=== PATIENT | female | born 1955 | race Caucasian/White ===

== ENCOUNTER 2020-09-13 03:42 | Emergency (ER) | payer OTHER ==
[~2020-09-13 03:42] MED LIST: ASPIR 8181 MG PO; COREG 3.125M3.125 MG PO; DILANTIN100 MG PO; IPRAT-ALBUT 0.5-3 ML INH; ISOSORBIDE MONO30 MG PO; LEVAQUIN750 MG PO; NISOLDIPINE25.5 MG PO; PLAVIX 75 MG TA75 MG PO; PROTONIX40 MG PO; ROBITUSSIN DM473 ML PO
[2020-09-13 04:18] LABS: HEMOGLOBIN 12.4 gm/dl (12.3-15.3); RED BLOOD COUNT 3.98 M/UL (4.00-5.10); WHITE BLOOD COUNT 7.2 K/UL (4.5-11.0)
[2020-09-13 04:49] LABS: BUN/CREATININE RATIO 15 (0-10)
[2020-09-13] MEDS ORDERED: CEFPODOXIME PR200 MG PO (07:39)
[2020-09-13] MEDS ORDERED: MIRALAX17 GM PO (07:39)
== END 2020-09-13 08:10 | disposition home or self-care (01) ==
LOC: ER1 03:42
PROVIDERS: Emergency Medicine
DX: N39.0 Urinary tract infection, site not specified (principal); K59.00 Constipation, unspecified; I71.4 Abdominal aortic aneurysm, without rupture; Z86.73 Personal history of transient ischemic attack (TIA), and cerebral infarction without residual deficits
CPT/HCPCS: 71045; 80053; 81001; 82550; 82553; 83605; 83690; 84484; 85025; 87040; 96374; 99284; J0696; Q9967

== ENCOUNTER → 2021-01-31 | Outpatient (CLI) | payer OTHER ==
[~2021-01-31] MED LIST changes: +CEFPODOXIME PR200 MG PO; +MIRALAX17 GM PO
== END ==
LOC: EXRD 12:46
DX: M79.642 Pain in left hand (principal); I70.8 Atherosclerosis of other arteries
CPT/HCPCS: 93931

== ENCOUNTER 2021-03-21 17:27 | Inpatient (IN) | payer OTHER ==
[~2021-03-21] VITALS: Ht 154.9 cm; Wt 41.4 kg
[2021-03-21 18:35] LABS: HEMOGLOBIN 12.6 gm/dl (12.3-15.3); RED BLOOD COUNT 4.16 M/UL (4.00-5.10); WHITE BLOOD COUNT 17.7 K/UL (4.5-11.0)
[2021-03-22] MEDS ORDERED: ADULT LOW DOSE81 MG PO (03:05)
[2021-03-22] MEDS ORDERED: CLOPIDOGREL75 MG PO (03:05)
[2021-03-22 10:15] LABS: HEMOGLOBIN 11.8 gm/dl (12.3-15.3); RED BLOOD COUNT 3.85 M/UL (4.00-5.10); WHITE BLOOD COUNT 19.6 K/UL (4.5-11.0)
[2021-03-24 08:28] LABS: HEMOGLOBIN 9.9 gm/dl (12.3-15.3)
[2021-03-24 08:29] LABS: RED BLOOD COUNT 3.27 M/UL (4.00-5.10); WHITE BLOOD COUNT 6.6 K/UL (4.5-11.0)
--- NOTE | 2021-03-24 21:08 | NUR ---
CALLED CRITICAL CALCIUM LEVEL TO MD. RECIEVED ORDERS. WILL CONTINUE TO MONITOR.
--- NOTE | 2021-03-26 04:37 | NUR ---
PT'S HEART RATE DROPPED TO THE 30'S. PT'S HEART RATE CURRENTLY IN THE 50'S. NOTIFIED DR AGRAWAL AND RECIEVED NO NEW ORDERS. PT RESTING QUIETLY FREE OF DISTRESS. WILL CONTINUE TO MONITOR.
[2021-03-26 09:32] LABS: HEMOGLOBIN 12.3 gm/dl (12.3-15.3); RED BLOOD COUNT 4.04 M/UL (4.00-5.10); WHITE BLOOD COUNT 2.7 K/UL (4.5-11.0)
--- NOTE | 2021-03-26 12:03 | NUR ---
PATIENT REFUSED LUNCH AT THIS TIME
--- NOTE | 2021-03-26 17:35 | NUR ---
ATTEMPTED TO CONTACT DR MATHEW WITH DR KAUFMAN TO GET ORDERS ON NEW FLUIDS, BUT NO ANSWER. DR KAUFMAN GAVE ORDERS.
--- NOTE | 2021-03-27 15:16 | NUR ---
ON ROUTINE VITALS CHECK PATIENT WAS DISCOVERED TO HAVE A BP OF 182//81. PROVIDER WAS NOTIFIED AND DUE TO SWALLOWING CONCERNS (PATIENT HAD SPEECH CONSULT ORDERED) NURSE REQUESTED IV MEDICAION FOR FEAR OF ASPIRATION. PROVIDER ORDERED HYDRALAZINE PRN Q6 FOR SBP>155. WILL CONTINUE TO MONITOR.
--- NOTE | 2021-03-29 07:03 | NUR ---
[facility] [place]
[2021-03-30 04:16] LABS: HEMOGLOBIN 11.6 gm/dl (12.3-15.3); RED BLOOD COUNT 3.81 M/UL (4.00-5.10); WHITE BLOOD COUNT 25.8 K/UL (4.5-11.0)
[2021-03-31 06:24] LABS: HEMOGLOBIN 10.6 gm/dl (12.3-15.3); RED BLOOD COUNT 3.63 M/UL (4.00-5.10); WHITE BLOOD COUNT 26.6 K/UL (4.5-11.0)
--- NOTE | 2021-03-31 12:40 | NUR ---
PT O2 SAT 87% IN ROOM AIR
[2021-04-01 03:03] LABS: HEMOGLOBIN 10.2 gm/dl (12.3-15.3); RED BLOOD COUNT 3.37 M/UL (4.00-5.10); WHITE BLOOD COUNT 20.3 K/UL (4.5-11.0)
[2021-04-02 02:41] LABS: HEMOGLOBIN 10.2 gm/dl (12.3-15.3); RED BLOOD COUNT 3.42 M/UL (4.00-5.10); WHITE BLOOD COUNT 20.1 K/UL (4.5-11.0)
[2021-04-03 03:37] LABS: HEMOGLOBIN 10.1 gm/dl (12.3-15.3); RED BLOOD COUNT 3.38 M/UL (4.00-5.10)
[2021-04-03 03:40] LABS: WHITE BLOOD COUNT 13.5 K/UL (4.5-11.0)
[2021-04-04 08:25] LABS: HEMOGLOBIN 9.9 gm/dl (12.3-15.3); RED BLOOD COUNT 3.41 M/UL (4.00-5.10)
[2021-04-04 08:36] LABS: WHITE BLOOD COUNT 7.9 K/UL (4.5-11.0)
[2021-04-05 06:08] LABS: HEMOGLOBIN 9.9 gm/dl (12.3-15.3); RED BLOOD COUNT 3.28 M/UL (4.00-5.10)
--- NOTE | 2021-04-05 18:16 | NUR ---
PATIENT REFUSED TO LET LAB STICK HER TO GET AN UPDATED POTASSIUM LEVEL. DR CARRERA WAS NOTIFIED AND SAID "WE WILL TRY AGAIN LATER".
[2021-04-07 02:53] LABS: HEMOGLOBIN 9.9 gm/dl (12.3-15.3); RED BLOOD COUNT 3.21 M/UL (4.00-5.10)
--- NOTE | 2021-04-07 17:33 | NUR ---
CALLED PATIENT FAMILY TO LET THEM KNOW PATIENT WAS BEING TRANSFERRED TO ROOM 511. NURSE IS KEEGAN
--- NOTE | 2021-04-07 18:06 | NUR ---
PATIENT TRANSFERRED TO [facility]113 PER PCU STAFF. PATIENT TOLERATED WELL. MD AWARE. FAMILY AWARE. KEEGAN RN ACCEPTING RN PRESENT IN PT ROOM.
[2021-04-08 09:53] LABS: HEMOGLOBIN 10.9 gm/dl (12.3-15.3); RED BLOOD COUNT 3.61 M/UL (4.00-5.10); WHITE BLOOD COUNT 20.9 K/UL (4.5-11.0)
[2021-04-09 11:17] LABS: HEMOGLOBIN 9.8 gm/dl (12.3-15.3); RED BLOOD COUNT 3.27 M/UL (4.00-5.10)
[2021-04-09 11:49] LABS: BUN/CREATININE RATIO 21 (0-10)
[2021-04-10 05:52] LABS: HEMOGLOBIN 8.1 gm/dl (12.3-15.3); RED BLOOD COUNT 2.77 M/UL (4.00-5.10); WHITE BLOOD COUNT 8.6 K/UL (4.5-11.0)
[2021-04-10 06:51] LABS: BUN/CREATININE RATIO 17 (0-10)
[2021-04-10] MEDS ORDERED: OYSTER SHELL 51 EAC2 PO (10:52)
[2021-04-10] MEDS ORDERED: LOPRESSOR 25 MG25 MG PO (10:52)
[2021-04-10] MEDS ORDERED: PHENYTOIN SODI100 MG PO (10:52)
[2021-04-10] MEDS ORDERED: POLYETHYLENE GL17 GM PO (10:52)
[2021-04-10] MEDS ORDERED: DOCUSATE SODIU100 MG PO (10:52)
[2021-04-10] MEDS ORDERED: MEGACE 400400 MG/10 PO (10:52)
[2021-04-10] MEDS ORDERED: BUDESONIDE0.5 MG/2 M NEB (10:52)
[2021-04-10] MEDS ORDERED: DEXAMETHASONE2 MG PO (10:58)
[2021-04-10] MEDS ORDERED: ERTAPENEM1 GM IV (11:00)
== END 2021-04-10 15:51 | DRG 871 ==
LOC: ER1 17:27 → CDU 20:40 → M/S 20:40 → PROG CARE 20:40 → MED SURG 4 20:40 → PROG CARE 03-29 11:15 → M/S 04-07 18:18
PROVIDERS: Emergency Medicine; Internal Medicine; Internal Medicine Nephrology; ADMIT Family Medicine
PROC: 8E0ZXY6 Isolation (ICD-10-PCS; principal; 2021-03-21)
PROC: 3E0333Z Introduction of Anti-inflammatory into Peripheral Vein, Percutaneous Approach (ICD-10-PCS; 2021-03-22)
PROC: XW033H5 Introduction of Tocilizumab into Peripheral Vein, Percutaneous Approach, New Technology Group 5 (ICD-10-PCS; 2021-03-24)
PROC: 5A0955A Assistance with Respiratory Ventilation, Greater than 96 Consecutive Hours, High Flow/Velocity Cannula (ICD-10-PCS; 2021-03-26)
PROC: 3E0336Z Introduction of Nutritional Substance into Peripheral Vein, Percutaneous Approach (ICD-10-PCS; 2021-03-27)
PROC: 0DH63UZ Insertion of Feeding Device into Stomach, Percutaneous Approach (ICD-10-PCS; 2021-03-27)
DX: A41.89 Other specified sepsis (principal); U07.1 COVID-19; J12.82 Pneumonia due to coronavirus disease 2019; G93.41 Metabolic encephalopathy; J96.01 Acute respiratory failure with hypoxia; N17.0 Acute kidney failure with tubular necrosis; J15.9 Unspecified bacterial pneumonia; J69.0 Pneumonitis due to inhalation of food and vomit; K85.90 Acute pancreatitis without necrosis or infection, unspecified; I69.351 Hemiplegia and hemiparesis following cerebral infarction affecting right dominant side; E87.2 Acidosis; I69.352 Hemiplegia and hemiparesis following cerebral infarction affecting left dominant side; E87.0 Hyperosmolality and hypernatremia; E44.0 Moderate protein-calorie malnutrition; E87.1 Hypo-osmolality and hyponatremia; Z68.1 Body mass index [BMI] 19.9 or less, adult; Z66 Do not resuscitate; L89.316 Pressure-induced deep tissue damage of right buttock; I71.4 Abdominal aortic aneurysm, without rupture; F03.90 Unspecified dementia, unspecified severity, without behavioral disturbance, psychotic disturbance, mood disturbance, and anxiety; E83.51 Hypocalcemia; E87.6 Hypokalemia; E87.5 Hyperkalemia; R65.20 Severe sepsis without septic shock; R53.81 Other malaise; N18.30 Chronic kidney disease, stage 3 unspecified; K56.41 Fecal impaction; G40.909 Epilepsy, unspecified, not intractable, without status epilepticus; Z79.82 Long term (current) use of aspirin; Z79.899 Other long term (current) drug therapy; Z95.1 Presence of aortocoronary bypass graft; Z23 Encounter for immunization
CPT/HCPCS: 0240U; 36415; 36600; 51702; 70450; 71045; 73130; 74018; 76705; 80048; 80053; 80061; 80202; 81001; 82150; 82330; 82570; 82652; 82803; 83605; 83690; 83970; 84100; 84300; 85025; 85027; 86140; 87040; 87077; 87081; 87086; 87186; 89050; 92526; 92610; 93005; 94640; 94660; 94760; 96365; 96367; 96375; 97110-GP-CQ; 97162; 97166; 97530; 99285; J0360; J0610; J0696; J1100; J1165; J1335; J1644; J1940; J2185; J2543; J3370; J3480; J7070; P9047; Q0249

== ENCOUNTER → 2021-09-24 | Outpatient (CLI) | payer MEDICARE, OTHER ==
[~2021-09-24] MED LIST changes: +ADULT LOW DOSE81 MG PO; +BUDESONIDE0.5 MG/2 M NEB; +CLOPIDOGREL75 MG PO; +DEXAMETHASONE2 MG PO; +DOCUSATE SODIU100 MG PO; +ERTAPENEM1 GM IV; +LOPRESSOR 25 MG25 MG PO; +MEGACE 400400 MG/10 PO; +OYSTER SHELL 51 EAC2 PO; +PHENYTOIN SODI100 MG PO; +POLYETHYLENE GL17 GM PO
== END ==
LOC: KOH-I 09-18 14:30
DX: R10.13 Epigastric pain (principal); I71.4 Abdominal aortic aneurysm, without rupture; K56.41 Fecal impaction
CPT/HCPCS: 74176